=== PATIENT | male | born 1985 | race Caucasian/White ===

== ENCOUNTER 2017-08-03 05:53 | Emergency (ER) | payer SELFPAY ==
[~2017-08-03] VITALS: Ht 182.9 cm; Wt 68.0 kg
[2017-08-03 05:57] VITALS: BP 147/88; PULSE 100; RESP 16; TEMP 98.6; O2SAT 98
[2017-08-03 06:09] VITALS: BP 126/75; PULSE 91; RESP 16; O2SAT 98
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
== END 2017-08-03 06:16 | disposition left against medical advice (07) ==
LOC: NEPD 05:53
DX: Z00.00 Encounter for general adult medical examination without abnormal findings (principal); Z59.0 Homelessness; Z72.0 Tobacco use
CPT/HCPCS: 99281

== ENCOUNTER 2017-09-21 13:35 | Inpatient (IN) | payer SELFPAY ==
[~2017-09-21] VITALS: Ht 182.9 cm; Wt 69.2 kg
[2017-09-21] MEDS ORDERED: SODIUM CHLORIDE 0.9% FLUSH 10 ML FLUSH IVF PRN (14:00)
--- NOTE | 2017-09-21 14:03 | PD ---
HPI Chief Complaint: OD/ Ingestion Time Seen by Provider: 13:55 Travel History International Travel<30 days: No Contact w/Intl Traveler<30days: No Traveled to known affect area: No History of Present Illness HPI 32-year-old male with history of opiate abuse, presents to the ER today brought in by EMS because he had used methadone and heroin, and had overdosed, was unresponsive and girlfriend called the ambulance. He was given 0.8 Narcan and became arousable but is lethargic by the time he gets to the ER. He prefers does not admit to taking anything. However, girlfriend had told ambulance crew when he took. He denies any other issues. Modifying Factors: None Associated Signs & Symptoms: Opiate overdose Risk Factors: Opiate abuse PFSH Past Medical History Immunizations Current: No Social History Alcohol Use: No Tobacco Use: Yes Substance Use: No Allergies-Medications (Allergen,Severity, Reaction): Coded Allergies: No Known Allergies (Verified Allergy, Unknown, 08/03/17) Reported Meds & Prescriptions Reported Meds & Active Scripts Active No Active Prescriptions or Reported Medications Review of Systems ROS Limitations: Intoxication, Altered Mental Status Physical Exam Narrative GENERAL: Well-developed young white male patient currently in moderate distress. Lethargic. SKIN: Focused skin assessment warm/dry. HEAD: Atraumatic. Normocephalic. EYES: Pupils small, equal and round. No scleral icterus. No injection or drainage. ENT: No nasal bleeding or discharge. Mucous membranes pink and moist. NECK: Trachea midline. No JVD. CARDIOVASCULAR: Regular rate and rhythm. No murmur appreciated. RESPIRATORY: No accessory muscle use. Clear to auscultation. Breath sounds equal bilaterally. GASTROINTESTINAL: Abdomen soft, non-tender, nondistended. Hepatic and splenic margins not palpable. MUSCULOSKELETAL: No obvious deformities. No clubbing. No cyanosis. No edema. NEUROLOGICAL: Lethargic. No obvious cranial nerve deficits. Motor grossly within normal limits. Normal speech. PSYCHIATRIC: Appropriate mood and affect; insight and judgment normal. Data Data Last Documented VS Vital Signs Date Time Temp Pulse Resp B/P (MAP) Pulse Ox O2 Delivery O2 Flow Rate FiO2 09/21/17 15:20 12 98 Nasal Cannula 2.00 09/21/17 15:06 69 09/21/17 14:10 98.7 Orders Orders Complete Blood Count With Diff (09/21/17 13:55) Comprehensive Metabolic Panel (09/21/17 13:55) Iv Access Insert/Monitor (09/21/17 13:55) Ecg Monitoring (09/21/17 13:55) Oximetry (09/21/17 13:55) Sodium Chloride 0.9% Flush (Ns Flush) (09/21/17 14:00) Drug Screen, Random Urine (09/21/17 13:55) Alcohol (Ethanol) (09/21/17 13:55) Salicylates (Aspirin) (09/21/17 13:55) Tylenol (Acetaminophen) (09/21/17 13:55) Naloxone Inj (Narcan Inj) (09/21/17 14:00) Restraints Non-Violent MATT.Q3H (09/21/17 13:57) Lorazepam Inj (Ativan Inj) (09/21/17 14:30) Lorazepam Inj (Ativan Inj) (09/21/17 14:21) Restraints Violent (09/21/17 14:43) Admit Order (Ed Use Only) (09/21/17 16:27) Labs Laboratory Tests Test 09/21/17 14:20 09/21/17 15:00 White Blood Count 4.6 TH/MM3 Red Blood Count 4.60 MIL/MM3 Hemoglobin 14.4 GM/DL Hematocrit 41.6 % Mean Corpuscular Volume 90.5 FL Mean Corpuscular Hemoglobin 31.3 PG Mean Corpuscular Hemoglobin Concent 34.6 % Red Cell Distribution Width 12.6 % Platelet Count 177 TH/MM3 Mean Platelet Volume 8.7 FL Neutrophils (%) (Auto) 58.0 % Lymphocytes (%) (Auto) 23.9 % Monocytes (%) (Auto) 17.4 % Eosinophils (%) (Auto) 0.3 % Basophils (%) (Auto) 0.4 % Neutrophils # (Auto) 2.6 TH/MM3 Lymphocytes # (Auto) 1.1 TH/MM3 Monocytes # (Auto) 0.8 TH/MM3 Eosinophils # (Auto) 0.0 TH/MM3 Basophils # (Auto) 0.0 TH/MM3 CBC Comment DIFF FINAL Differential Comment Blood Urea Nitrogen 17 MG/DL Creatinine 1.06 MG/DL Random Glucose 113 MG/DL Total Protein 7.2 GM/DL Albumin 3.6 GM/DL Calcium Level 8.7 MG/DL Alkaline Phosphatase 50 U/L Aspartate Amino Transf (AST/SGOT) 89 U/L Alanine Aminotransferase (ALT/SGPT) 66 U/L Total Bilirubin 0.8 MG/DL Sodium Level 139 MEQ/L Potassium Level 4.5 MEQ/L Chloride Level 106 MEQ/L Carbon Dioxide Level 23.4 MEQ/L Anion Gap 10 MEQ/L Estimat Glomerular Filtration Rate 80 ML/MIN Salicylates Level LESS THAN 1.7 MG/DL Acetaminophen Level LESS THAN 2.0 MCG/ML Ethyl Alcohol Level LESS THAN 3 MG/DL Urine Opiates Screen NEG Urine Barbiturates Screen NEG Urine Amphetamines Screen POS Urine Benzodiazepines Screen NEG Urine Cocaine Screen POS Urine Cannabinoids Screen POS MDM Medical Decision Making Medical Screen Exam Complete: Yes Emergency Medical Condition: Yes Medical Record Reviewed: Yes Interpretation(s) Laboratory Tests Test 09/21/17 14:20 09/21/17 15:00 Monocytes (%) (Auto) 17.4 % (0.0-8.0) Random Glucose 113 MG/DL (74-106) Aspartate Amino Transf (AST/SGOT) 89 U/L (15-37) Estimat Glomerular Filtration Rate 80 ML/MIN (>89) Salicylates Level LESS THAN 1.7 MG/DL Acetaminophen Level LESS THAN 2.0 MCG/ML Urine Amphetamines Screen POS (NEG) Urine Cocaine Screen POS (NEG) Urine Cannabinoids Screen POS (NEG) Differential Diagnosis Opiate overdose/rule out coingestions versus metabolic issues Narrative Course Patient was initially lethargic, and as we were getting further workup done and about to give him more Narcan, he awakens fairly agitated, disoriented, and was given Ativan for severe agitation, in order to keep him from hurting self and others. Marchman acte was instituted due to his obvious intoxication. At this point, my plan would be to admit the patient for further treatment. Patient will need to go to ICU due to lethargy and suspected opiate overdose. Case was discussed with Dr. Kaye for admission. Aggregate critical care time was 15 minutes. Time to perform other separately billable procedures was not included in the critical care time. My time did not include minutes spent treating any other patients simultaneously or on activities that did not directly contribute to the patient's treatment. The services I provided to this patient were to treat and/or prevent clinically significant deterioration that could result in: Respiratory arrest, I provided critical care services requiring my management, as noted below: Chart data review, documentation time, medication orders and management, vital sign assessments/reviewing monitor data, ordering and reviewing lab tests, ordering and interpreting/reviewing x-rays and diagnostic studies, care of the patient and discussion of the patient with the admitting physicians. Diagnosis Primary Impression: Substance abuse Additional Impression: Opiate overdose Admitting Information Admitting Physician Requests: Admit Scripts No Active Prescriptions or Reported Meds Mario Payne MD Sep 21, 2017 14:03
[2017-09-21] MEDS: NALOXONE HCL 2 MG/2 ML VIAL IV PUSH ONE ×2 (14:06→17:48)
[2017-09-21 14:10] VITALS: BP 105/61; PULSE 91; RESP 24; TEMP 98.7; O2SAT 98
[2017-09-21] MEDS ORDERED: LORazepam 2 MG/ML VIAL ONE (14:21)
[2017-09-21] MEDS ORDERED: LORazepam 2 MG/ML VIAL IV PUSH ONE (14:30)
[2017-09-21 15:06] VITALS: BP 145/96; PULSE 69; RESP 16; O2SAT 96
[2017-09-21 15:20] VITALS: RESP 12; O2SAT 98
[2017-09-21 15:44] LABS: AUTOMATED NEUTROPHIL # 2.6 TH/MM3 (1.8-7.7); BASOPHIL % 0.4 % (0.0-2.0); EOSINOPHIL % 0.3 % (0.0-4.0); HEMATOCRIT 41.6 % (39.0-51.0); HEMOGLOBIN 14.4 GM/DL (13.0-17.0); LYMPH % 23.9 % (9.0-44.0); LYMPHOCYTE # 1.1 TH/MM3 (1.0-4.8); MEAN CELL VOLUME 90.5 FL (80.0-100.0); MEAN CORPUSCULAR HEMOGLOBIN 31.3 PG (27.0-34.0); MEAN CORPUSCULAR HGB CONC 34.6 % (32.0-36.0); MEAN PLATELET VOLUME 8.7 FL (7.0-11.0); MONO % 17.4 % (0.0-8.0); MONOCYTE # 0.8 TH/MM3 (0-0.9); PLATELET COUNT 177 TH/MM3 (150-450); RED CELL DISTRIBUTION WIDTH 12.6 % (11.6-17.2); WHITE BLOOD COUNT 4.6 TH/MM3 (4.0-11.0)
[2017-09-21 15:48] LABS: ALBUMIN 3.6 GM/DL (3.4-5.0); ALT (GPT) 66 U/L (12-78); AST (GOT) 89 U/L (15-37); BICARBONATE 23.4 MEQ/L (21.0-32.0); BLOOD UREA NITROGEN 17 MG/DL (7-18); CALCIUM 8.7 MG/DL (8.5-10.1); CHLORIDE 106 MEQ/L (98-107); CREATININE 1.06 MG/DL (0.60-1.30); GLOMERULAR FILTRATION RATE 80 ML/MIN (>89); GLUCOSE,RANDOM 113 MG/DL (74-106); SODIUM (NA) 139 MEQ/L (136-145)
[2017-09-21 15:50] LABS: ACETAMINOPHEN LESS THAN 2.0 MCG/ML (10.0-30.0); ALKALINE PHOSPHATASE 50 U/L (45-117); TOTAL BILIRUBIN ADULT 0.8 MG/DL (0.2-1.0); TOTAL PROTEIN 7.2 GM/DL (6.4-8.2)
[2017-09-21] MEDS ORDERED: LACTULOSE SYRUP 20 GM/30 ML CUP PO PRN (16:30)
[2017-09-21] MEDS ORDERED: BISACODYL 10 MG SUPP RECTAL PRN (16:30)
[2017-09-21] MEDS ORDERED: SENNOSIDES 8.6 MG TAB PO PRN (16:30)
[2017-09-21] MEDS ORDERED: MAGNESIUM HYDROXIDE SUSP 30 ML CUP PO PRN (16:30)
[2017-09-21] MEDS ORDERED: ONDANSETRON HCL 4 MG/2 ML VIAL IVP PRN (16:30)
[2017-09-21] MEDS ORDERED: SODIUM CHLORIDE 0.9% FLUSH 10 ML FLUSH IV FLUSH PRN (16:30)
[2017-09-21] MEDS ORDERED: NALOXONE HCL 0.4 MG/ML AMP IV PUSH PRN ×2 (16:30→18:15)
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
[2017-09-21 17:11] VITALS: BP 168/93; PULSE 48; RESP 12; O2SAT 100
[2017-09-21] MEDS ORDERED: ATROPINE SULFATE 1 MG/ML VIAL IV PUSH PRN (18:00)
[2017-09-21] MEDS: SODIUM CHLOR 0.9% 1000 ML INJ 1,000 ML IV SCH (18:22)
[2017-09-21] MEDS ORDERED: ENOXAPARIN SODIUM 40 MG/0.4 ML SYRINGE SQ SCH (18:30)
[2017-09-21 20:00] VITALS: BP 100/58; PULSE 64; RESP 18; TEMP 98.5; O2SAT 97
--- NOTE | 2017-09-21 21:14 | EKG ---
Date Performed: 09/21/2017 Time Performed: 15:00:27 PTAGE: 32 years EKG: Sinus rhythm INCOMPLETE RIGHT BUNDLE BRANCH BLOCK BORDERLINE ECG NO PREVIOUS TRACING DOCTOR: Zoltan Valladares Interpretating Date/Time 09/21/2017 21:12:33
[2017-09-21] MEDS: SODIUM CHLORIDE 0.9% FLUSH 10 ML FLUSH IV FLUSH SCH (21:31)
[2017-09-21] MEDS: DOCUSATE SODIUM 50 MG/SENNA 8.6 MG TAB PO SCH (21:31)
[2017-09-21 22:00] VITALS: PULSE 55
--- NOTE | 2017-09-21 22:02 | EKG ---
Date Performed: 09/21/2017 Time Performed: 17:15:44 PTAGE: 32 years EKG: SINUS BRADYCARDIA WITH OCCASIONAL SUPRAVENTRICULAR PREMATURE COMPLEXES BORDERLINE RIGHT AXI S DEVIATION INCOMPLETE RIGHT BUNDLE BRANCH BLOCK ABNORMAL ECG PREVIOUS TRACING : 09/21/2017 15.00 Compared to previous tracing, heart rate has decreased. DOCTOR: Zoltan Valladares Interpretating Date/Time 09/21/2017 22:00:47
--- NOTE | 2017-09-21 23:14 | PD.CONS ---
HPI Service Critical Care Medicine Consult Requested By Primary Care Physician Unknown History of Present Illness 32-year-old male with history of opiate abuse, presents today because he has had used methadone and heroin, and had possible overdosed, was unresponsive and girlfriend called the ambulance. He was given 0.8 Narcan and became abusable but was still very lethargic by the time he arrived to the emergency department. Patient's girlfriend had told ambulance crew she was concerned of him taking Flakka. Upon arrival to ICU the patient has been sleepy and comfortable however later at night he became extremely combative, talking about his child's that recently at the age of 3 made him very upset and using drugs is his way of grieving. Review of Systems ROS Unobtainable due to altered mental status Past Family Social History Allergies: Coded Allergies: No Known Allergies (Verified , 08/03/17) Past Medical History No significant past medical history Past Surgical History No significant surgical history Reported Medications Reported Meds & Active Scripts Active No Active Prescriptions or Reported Medications Active Ordered Medications Current Medications Medications (Trade) Dose Ordered Sig/Mary Route PRN Reason Start Time Stop Time Status Last Admin Dose Admin Sodium Chloride 1,000 ml @ 75 mls/hr [id number] IV 09/21/17 16:27 09/21/17 18:22 Sodium Chloride (NS Flush) 2 ml UNSCH PRN IV FLUSH FLUSH AFTER USING IV ACCESS 09/21/17 16:30 Sodium Chloride (NS Flush) 2 ml BID IV FLUSH 09/21/17 21:00 09/21/17 21:31 Ondansetron HCl (Zofran Inj) 4 mg Q6H PRN IVP NAUSEA OR VOMITING 09/21/17 16:30 Naloxone HCl (Narcan Inj) 0.4 mg UNSCH PRN IV PUSH SEE LABEL COMMENTS 09/21/17 16:30 Senna/Docusate Sodium (Destiny-Colace) 1 tab BID PO 09/21/17 21:00 09/21/17 21:31 Magnesium Hydroxide (Milk Of Magnesia Liq) 30 ml Q12H PRN PO Mild constipation 09/21/17 16:30 Sennosides (Senokot) 17.2 mg Q12H PRN PO Moderate constipation 09/21/17 16:30 Bisacodyl (Dulcolax Supp) 10 mg DAILY PRN RECTAL SEVERE CONSITIPATION 09/21/17 16:30 Lactulose (Lactulose Liq) 30 ml DAILY PRN PO SEVERE CONSITIPATION 09/21/17 16:30 Atropine Sulfate (Atropine Inj) 0.5 mg Q5M PRN IV PUSH SYMPTOMATIC BRADYCARDIA 09/21/17 18:00 Enoxaparin Sodium (Lovenox Inj) 40 mg Q24H SQ 09/21/17 18:30 09/21/17 18:30 Naloxone HCl (Narcan Inj) 0.4 mg Q2M PRN IV PUSH RESP DEPRESSION OR HYPOTENSION 09/21/17 18:15 Family History Not able to obtain Social History Per records tobacco use 1 PPD , no EtOH use. Now with positive urine for cocaine , amphetamines and cannabis Physical Exam Vital Signs Vital Signs Date Time Temp Pulse Resp B/P (MAP) Pulse Ox O2 Delivery O2 Flow Rate FiO2 09/21/17 20:00 64 09/21/17 18:51 09/21/17 17:11 48 12 168/93 (118) 100 Nasal Cannula 2.00 09/21/17 15:20 12 98 Nasal Cannula 2.00 09/21/17 15:06 69 16 145/96 (112) 96 Room Air 09/21/17 14:31 (76) Room Air 09/21/17 14:10 98.7 91 24 105/61 (76) 98 Room Air 09/21/17 13:54 66 18 Physical Exam GENERAL: Well-nourished, well-developed patient. Episodes of extreme agitation , and lethargy SKIN: Warm and dry. HEAD: Normocephalic. EYES: No scleral icterus. No injection or drainage. NECK: Supple, trachea midline. No JVD or lymphadenopathy. CARDIOVASCULAR: Regular rate and rhythm without murmurs, gallops, or rubs. RESPIRATORY: Breath sounds equal bilaterally. No accessory muscle use. GASTROINTESTINAL: Abdomen soft, non-tender, nondistended. MUSCULOSKELETAL: No cyanosis, or edema. BACK: Nontender without obvious deformity. NEURO EXAM: Mental Status: The patient is alert and oriented to person Cranial Nerves: Pupils are round, reactive to light. Reflexes: No clonus. Laboratory Laboratory Tests Test 09/21/17 14:20 09/21/17 15:00 White Blood Count 4.6 Red Blood Count 4.60 Hemoglobin 14.4 Hematocrit 41.6 Mean Corpuscular Volume 90.5 Mean Corpuscular Hemoglobin 31.3 Mean Corpuscular Hemoglobin Concent 34.6 Red Cell Distribution Width 12.6 Platelet Count 177 Mean Platelet Volume 8.7 Neutrophils (%) (Auto) 58.0 Lymphocytes (%) (Auto) 23.9 Monocytes (%) (Auto) 17.4 Eosinophils (%) (Auto) 0.3 Basophils (%) (Auto) 0.4 Neutrophils # (Auto) 2.6 Lymphocytes # (Auto) 1.1 Monocytes # (Auto) 0.8 Eosinophils # (Auto) 0.0 Basophils # (Auto) 0.0 CBC Comment DIFF FINAL Differential Comment Blood Urea Nitrogen 17 Creatinine 1.06 Random Glucose 113 Total Protein 7.2 Albumin 3.6 Calcium Level 8.7 Alkaline Phosphatase 50 Aspartate Amino Transf (AST/SGOT) 89 Alanine Aminotransferase (ALT/SGPT) 66 Total Bilirubin 0.8 Sodium Level 139 Potassium Level 4.5 Chloride Level 106 Carbon Dioxide Level 23.4 Anion Gap 10 Estimat Glomerular Filtration Rate 80 Salicylates Level LESS THAN 1.7 Acetaminophen Level LESS THAN 2.0 Ethyl Alcohol Level LESS THAN 3 Urine Opiates Screen NEG Urine Barbiturates Screen NEG Urine Amphetamines Screen POS Urine Benzodiazepines Screen NEG Urine Cocaine Screen POS Urine Cannabinoids Screen POS Result Diagram: 09/21/17 1420 09/21/17 142 Assessment and Plan Assessment and Plan Altered mental status - Post substance intoxication - Ativan and Haldol when necessary for agitation - Monitor neuro checks in the ICU per routine - CT head negative Polysubstance abuse - Benzos when necessary - Monitor for withdrawal DVT GI prophylaxis - Teds SCDs - Pepcid - Early aggressive mobilization Critical Care: The total critical care time was 35 minutes. Time to perform other separately billable procedures was not included in the critical care time. Herb Emmanuel MD Sep 21, 2017 23:14
[2017-09-22] VITALS (10 sets, daily range): BP systolic 114–145; BP diastolic 73–85; PULSE 47–72; RESP 9–18; TEMP 98.2–98.7; O2SAT 97–99
[2017-09-22] MEDS ORDERED: LORazepam 2 MG/ML VIAL ONE (00:04)
[2017-09-22] MEDS ORDERED: diphenhydrAMINE HCL 50 MG/ML VIAL ONE (00:04)
[2017-09-22] MEDS ORDERED: HALOPERIDOL LACTATE 5 MG/ML AMP IV ONE (00:15)
[2017-09-22] MEDS: SODIUM CHLOR 0.9% 1000 ML INJ 1,000 ML IV SCH (05:26)
[2017-09-22] MEDS ORDERED: HALOPERIDOL LACTATE 5 MG/ML AMP IV PRN (08:30)
[2017-09-22] MEDS: SODIUM CHLORIDE 0.9% FLUSH 10 ML FLUSH IV FLUSH SCH (09:00)
[2017-09-22] MEDS: DOCUSATE SODIUM 50 MG/SENNA 8.6 MG TAB PO SCH (09:00)
--- NOTE | 2017-09-22 11:56 | PD.PSY.CON ---
Provisional Diagnosis Admission Date Sep 21, 2017 at 16:29 Brady I. Polysubstance dependence, including amphetamines, cocaine and cannabis. Brady II. 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 Noyola Reason for Consult Polysubstance dependence Primary Care Physician Unknown HPI The patient is a 32-year-old man with history of opiate abuse, polysubstance dependence including cannabis, amphetamines, cocaine, who presents to the ER today brought in by EMS because he had used methadone and heroin, and had overdosed, was unresponsive and girlfriend called the ambulance. He was given 0.8 Narcan and became abusable but is lethargic by the time he gets to the ER. He prefers does not admit to taking anything. However , girlfriend had told ambulance crew when he took. He was consulted to psychiatry to assess then she'll intentional overdose. However, on psychiatric evaluation the patient repeatedly denies that he tried to overdose with the intention to commit suicide. She reports that he has been using cocaine, cannabis and amphetamines on and off, but he is addicted to opiates. Patient denies depressive symptoms, he denies anhedonia, he denies hopelessness, helplessness, worthlessness, he denies suicidal and homicidal ideation. During the evaluation the patient is irritable, poorly cooperative, answering my questions very briefly. Patient denies visual and auditory hallucinations, no paranoia, no delusions of reference, no agitation or aggressive behavior noted. The patient is fully oriented 3. Review of Systems Constitutional: DENIES: Diaphoretic episodes, Fatigue, Fever, Weight gain, Weight loss, Chills, Dizziness, Change in appetite, Night Sweats Endocrine: DENIES: Heat/cold intolerance, Polydipsia, Polyuria, Polyphagia Eyes: DENIES: Blurred vision, Diplopia, Eye inflammation, Eye pain, Vision loss , Photosensitivity, Double Vision Ears, nose, mouth, throat: DENIES: Tinnitus, Hearing loss, Vertigo, Nasal discharge, Oral lesions, Throat pain, Hoarseness, Ear Pain, Running Nose, Epistaxis, Sinus Pain, Toothache, Odynophagia Respiratory: DENIES: Apneas, Cough, Snoring, Wheezing, Hemoptysis, Sputum production, Shortness of breath Cardiovascular: DENIES: Chest pain, Palpitations, Syncope, Dyspnea on Exertion , PND, Lower Extremity Edema, Orthopnea, Claudication Gastrointestinal: DENIES: Abdominal pain, Black stools, Bloody stools, Constipation, Diarrhea, Nausea, Vomiting, Difficulty Swallowing, Anorexia Genitourinary: DENIES: Sexual dysfunction, Urinary frequency, Urinary incontinence, Urgency, Hematuria, Dysuria, Nocturia, Penile Discharge, Testicular Pain, Testicular Swelling Musculoskeletal: DENIES: Joint pain, Muscle aches, Stiffness, Joint Swelling, Back pain, Neck pain Integumentary: DENIES: Abnormal pigmentation, Nail changes, Pruritus, Rash Hematologic/lymphatic: DENIES: Bruising, Lymphadenopathy Immunologic/allergic: DENIES: Eczema, Urticaria Neurologic: DENIES: Abnormal gait, Headache, Localized weakness, Paresthesias, Seizures, Speech Problems, Tremor, Poor Balance Psychiatric: DENIES: Anxiety, Confusion, Mood changes, Depression, Hallucinations, Agitation, Suicidal Ideation, Homicidal Ideation, Delusions Past Family Social History Coded Allergies: No Known Allergies (Verified , 08/03/17) No Active Prescriptions or Reported Meds Current Medications Medications (Trade) Dose Ordered Sig/Mary Route Start Time Stop Time Status Last Admin Sodium Chloride 1,000 ml @ 75 mls/hr [id number] IV 09/21/17 16:27 09/22/17 05:26 (NS Flush) 2 ml UNSCH PRN IV FLUSH 09/21/17 16:30 (NS Flush) 2 ml BID IV FLUSH 09/21/17 21:00 09/21/17 21:31 (Zofran Inj) 4 mg Q6H PRN IVP 09/21/17 16:30 (Destiny-Colace) 1 tab BID PO 09/21/17 21:00 09/21/17 21:31 (Milk Of Magnesia Liq) 30 ml Q12H PRN PO 09/21/17 16:30 (Senokot) 17.2 mg Q12H PRN PO 09/21/17 16:30 (Dulcolax Supp) 10 mg DAILY PRN RECTAL 09/21/17 16:30 (Lactulose Liq) 30 ml DAILY PRN PO 09/21/17 16:30 (Atropine Inj) 0.5 mg Q5M PRN IV PUSH 09/21/17 18:00 (Lovenox Inj) 40 mg Q24H SQ 09/21/17 18:30 09/21/17 18:30 (Narcan Inj) 0.4 mg Q2M PRN IV PUSH 09/21/17 18:15 (Haldol Inj) 5 mg Q4H PRN IV 09/22/17 08:30 Family Psych History Patient denies family psychiatric history Social History Patient lives in [place], he is stays that he works, has a girlfriend, Patient's Strengths (min. 2) Verbal communication Physical Exam Vital Signs Vital Signs Date Time Temp Pulse Resp B/P (MAP) Pulse Ox O2 Delivery O2 Flow Rate FiO2 09/22/17 10:00 53 09/22/17 08:00 98.2 9 09/22/17 04:00 145/85 (105) 99 09/21/17 17:11 Nasal Cannula 2.00 I/O 09/22/17 09/22/17 09/23/17 08:00 16:00 00:00 Intake Total 240 ml Output Total 400 ml Balance -160 ml Lab Results Test 09/21/17 14:20 09/21/17 15:00 White Blood Count 4.6 TH/MM3 Red Blood Count 4.60 MIL/MM3 Hemoglobin 14.4 GM/DL Hematocrit 41.6 % Mean Corpuscular Volume 90.5 FL Mean Corpuscular Hemoglobin 31.3 PG Mean Corpuscular Hemoglobin Concent 34.6 % Red Cell Distribution Width 12.6 % Platelet Count 177 TH/MM3 Mean Platelet Volume 8.7 FL Neutrophils (%) (Auto) 58.0 % Lymphocytes (%) (Auto) 23.9 % Monocytes (%) (Auto) 17.4 % Eosinophils (%) (Auto) 0.3 % Basophils (%) (Auto) 0.4 % Neutrophils # (Auto) 2.6 TH/MM3 Lymphocytes # (Auto) 1.1 TH/MM3 Monocytes # (Auto) 0.8 TH/MM3 Eosinophils # (Auto) 0.0 TH/MM3 Basophils # (Auto) 0.0 TH/MM3 CBC Comment DIFF FINAL Differential Comment Blood Urea Nitrogen 17 MG/DL Creatinine 1.06 MG/DL Random Glucose 113 MG/DL Total Protein 7.2 GM/DL Albumin 3.6 GM/DL Calcium Level 8.7 MG/DL Alkaline Phosphatase 50 U/L Aspartate Amino Transf (AST/SGOT) 89 U/L Alanine Aminotransferase (ALT/SGPT) 66 U/L Total Bilirubin 0.8 MG/DL Sodium Level 139 MEQ/L Potassium Level 4.5 MEQ/L Chloride Level 106 MEQ/L Carbon Dioxide Level 23.4 MEQ/L Anion Gap 10 MEQ/L Estimat Glomerular Filtration Rate 80 ML/MIN Salicylates Level LESS THAN 1.7 MG/DL Acetaminophen Level LESS THAN 2.0 MCG/ML Ethyl Alcohol Level LESS THAN 3 MG/DL Urine Opiates Screen NEG Urine Barbiturates Screen NEG Urine Amphetamines Screen POS Urine Benzodiazepines Screen NEG Urine Cocaine Screen POS Urine Cannabinoids Screen POS Mental Status Examination Appearance: Appropriate Consciousness: Alert Orientation: x4 Motor Activity: Normal gait Speech: Unremarkable Language: Adequate Fund of Knowledge: Adequate Attention and Concentration: Adequate Memory: Unremarkable Mood: Irritable Affect: Irritable Thought Process & Associations: Intact Thought Content: Appropriate Hallucination Type: None Delusion Type: None Suicidal Ideation: No Suicidal Plan: No Suicidal Intention: No Homicidal Ideation: No Homicidal Plan: No Homicidal Intention: No Insight: Adequate Judgment: Adequate Assessment & Plan Problem List: (1) Polysubstance (excluding opioids) dependence ICD Codes: F19.20 - Other psychoactive substance dependence, uncomplicated Assessment & Plan: At the moment of the psychiatric evaluation the patient does not present any significant symptomatology of depression, anxiety, araceli or psychosis. Patient denies suicidal and homicidal ideation, patient also denies visual and auditory hallucinations. His recent overdose with opiates doesn't seem to be with delivered overdose, but poor judgment and poor impulse control related with chronic drug use and intoxication. At this moment the patient does not meet criteria for psychiatric admission. Patient would benefit of comprehensive rehabilitation program. Support, motivation and psychoeducation provided. Xiong act will be lifted. Assessment & Plan Estimated LOS: Britton Diehl MD Sep 22, 2017 11:56
--- NOTE | 2017-09-22 16:30 | HHI.CCPN ---
Subjective Remarks/Hospital Course Hospital Course: 32-year-old male with history of opiate abuse, presents today because he has had used methadone and heroin, and had possible overdosed, was unresponsive and girlfriend called the ambulance. He was given 0.8 Narcan and became abusable but was still very lethargic by the time he arrived to the emergency department. Patient's girlfriend had told ambulance crew she was concerned of him taking Flakka. Upon arrival to ICU the patient has been sleepy and comfortable however later at night he became extremely combative, talking about his child's that recently at the age of 3 made him very upset and using drugs is his way of grieving. Subjective: 09/22: patient doing well. on room air. tolerating diet. voiding on own. psych saw patient and cleared him from a psychiatric standpoint and he does not need inpatient psych. I talked with him and he denies suicidal ideations or homicidal ideations. he was marchman acted for aggressive behavior but exhibits none of that behavior today. I asked him about inpatient rehab and he vehemently states he does not need or want detox or inpatient opiate rehabilitation. Objective Vital Signs Date Time Temp Pulse Resp B/P (MAP) Pulse Ox O2 Delivery O2 Flow Rate FiO2 09/22/17 16:00 55 09/22/17 16:00 98.4 11 09/22/17 04:00 145/85 (105) 99 09/21/17 17:11 Nasal Cannula 2.00 Intake and Output 09/22/17 09/22/17 09/23/17 08:00 16:00 00:00 Intake Total 240 ml Output Total 400 ml Balance -160 ml Result Diagram: 09/21/17 1420 09/21/17 1420 Objective Remarks GENERAL: Well-nourished, well-developed patient. calm. no acute distress. SKIN: Warm and dry. HEAD: Normocephalic. EYES: No scleral icterus. No injection or drainage. NECK: Supple, trachea midline. CARDIOVASCULAR: Regular rate and rhythm without murmurs, gallops, or rubs. RESPIRATORY: Breath sounds equal bilaterally. No accessory muscle use. GASTROINTESTINAL: Abdomen soft, non-tender, nondistended. MUSCULOSKELETAL: No cyanosis, or edema. NEURO EXAM: RASS 0. calm. not agitated. poor judgement and insight. no focal deficits. A/P Assessment and Plan Assessment: 32yM s/p opiate overdose, initially marchmed acted. Both psychiatry and myself agree that he is currently not a harm to himself or others. he is sober and calm. I do agree that he would benefit from inpatient detox/rehab facility, but I do not think that he requires mandatory marchman act/ involuntary hold. If he is not ready to detox, then I do not think inpatient rehab services will afford him much benefit. From a medical stand point, he is cleared for medical discharge and I cannot hold him inpatient. He wishes to go home. Toxic Encephalopathy - resolved. - Post substance intoxication - CT head negative Polysubstance abuse - recommended inpatient rehab. recommended cessation of opiate use. patient refused and does not wish to cessate at this time. - Monitor for withdrawal DVT GI prophylaxis - Teds SCDs - Pepcid - Early aggressive mobilization Dispo: home with friend. Serjio Melton MD Sep 22, 2017 16:30
--- NOTE | 2017-09-22 16:31 | HHI.DS ---
Discharge Summary Admission Date Sep 21, 2017 at 16:29 Discharge Date: Sep 22, 2017 Admitting Diagnosis polysubstance abuse/suspected opiate overdose/altered mental status Brief History 32-year-old male with history of opiate abuse, presents to the ER today brought in by EMS because he had used methadone and heroin, and had overdosed, was unresponsive and girlfriend called the ambulance. He was given 0.8 Narcan and became abusable but is lethargic by the time he gets to the ER. He prefers does not admit to taking anything. However, girlfriend had told ambulance crew when he took. He denies any other issues. Discussed with ED physician. Patient received narcan by EMS, still lethargic in the ED however he was noted agitated and combative in the ED, and received ativan . Patient is in bed and sleepy not able to give any history. He is also noted with HR in 50s. CBC/BMP: 09/21/17 1420 09/21/17 1420 Significant Findings Laboratory Tests Test 09/21/17 14:20 09/21/17 15:00 09/22/17 11:00 Monocytes (%) (Auto) 17.4 % (0.0-8.0) Random Glucose 113 MG/DL (74-106) Aspartate Amino Transf (AST/SGOT) 89 U/L (15-37) Estimat Glomerular Filtration Rate 80 ML/MIN (>89) Salicylates Level LESS THAN 1.7 MG/DL Acetaminophen Level LESS THAN 2.0 MCG/ML Urine Amphetamines Screen POS (NEG) Urine Cocaine Screen POS (NEG) Urine Cannabinoids Screen POS (NEG) Hospital Course Hospital Course: 32-year-old male with history of opiate abuse, presents today because he has had used methadone and heroin, and had possible overdosed, was unresponsive and girlfriend called the ambulance. He was given 0.8 Narcan and became abusable but was still very lethargic by the time he arrived to the emergency department. Patient's girlfriend had told ambulance crew she was concerned of him taking Flakka. Upon arrival to ICU the patient has been sleepy and comfortable however later at night he became extremely combative, talking about his child's that recently at the age of 3 made him very upset and using drugs is his way of grieving. Subjective: 09/22: patient doing well. on room air. tolerating diet. voiding on own. psych saw patient and cleared him from a psychiatric standpoint and he does not need inpatient psych. I talked with him and he denies suicidal ideations or homicidal ideations. he was marchman acted for aggressive behavior but exhibits none of that behavior today. I asked him about inpatient rehab and he vehemently states he does not need or want detox or inpatient opiate rehabilitation. Pt Condition on Discharge: Stable Discharge Disposition: Discharge Home Discharge Instructions DIET: Follow Instructions for: As Tolerated, No Restrictions Activities you can perform: Regular-No Restrictions Serjio Melton MD Sep 22, 2017 16:31
[2017-09-22 17:43] LABS: AUTOMATED NEUTROPHIL # 2.3 TH/MM3 (1.8-7.7); BASOPHIL % 0.4 % (0.0-2.0); EOSINOPHIL # 0.1 TH/MM3 (0-0.4); EOSINOPHIL % 1.2 % (0.0-4.0); HEMOGLOBIN 14.3 GM/DL (13.0-17.0); LYMPH % 30.9 % (9.0-44.0); LYMPHOCYTE # 1.3 TH/MM3 (1.0-4.8); MEAN CELL VOLUME 90.5 FL (80.0-100.0); MEAN CORPUSCULAR HEMOGLOBIN 31.5 PG (27.0-34.0); MEAN CORPUSCULAR HGB CONC 34.8 % (32.0-36.0); MEAN PLATELET VOLUME 8.8 FL (7.0-11.0); MONO % 11.2 % (0.0-8.0); MONOCYTE # 0.5 TH/MM3 (0-0.9); NEUT % 56.3 % (16.0-70.0); PLATELET COUNT 145 TH/MM3 (150-450); RED BLOOD COUNT 4.53 MIL/MM3 (4.50-5.90); WHITE BLOOD COUNT 4.1 TH/MM3 (4.0-11.0)
[2017-09-22 17:59] LABS: BICARBONATE 28.6 MEQ/L (21.0-32.0); CALCIUM 7.8 MG/DL (8.5-10.1); CREATININE 0.98 MG/DL (0.60-1.30)
== END 2017-09-22 18:45 | DRG 917 ==
LOC: NEPC 13:35 → NEDA 16:29 → HIMN 18:43
PROVIDERS: ADMIT Internal Medicine Critical Care Medicine; ATTEND Internal Medicine Critical Care Medicine
DX: T40.3X1A Poisoning by methadone, accidental (unintentional), initial encounter (principal); G92 Toxic encephalopathy; T40.1X1A Poisoning by heroin, accidental (unintentional), initial encounter; F11.129 Opioid abuse with intoxication, unspecified; F19.129 Other psychoactive substance abuse with intoxication, unspecified; R53.83 Other fatigue; F17.210 Nicotine dependence, cigarettes, uncomplicated
CPT/HCPCS: 80048; 80053; 80307; 85025; 87641; 93005; J1200; J1630; J1650; J2060; J2310; J7030

== ENCOUNTER 2017-10-18 18:57 | Emergency (ER) | payer SELFPAY ==
[~2017-10-18] VITALS: Ht 182.9 cm; Wt 75.0 kg
[2017-10-18 19:22] VITALS: BP 118/67; PULSE 77; RESP 16; TEMP 97.7; O2SAT 100
[2017-10-18] MEDS ORDERED: SODIUM CHLOR 0.9% 1000 ML INJ 1,000 ML IV ONE ×2 (19:32→21:45)
[2017-10-18] MEDS ORDERED: NALOXONE HCL 0.4 MG/ML AMP IV PUSH ONE (19:45)
[2017-10-18] MEDS ORDERED: ONDANSETRON HCL 4 MG/2 ML VIAL IV PUSH ONE (19:45)
[2017-10-18] MEDS ORDERED: SODIUM CHLORIDE 0.9% FLUSH 10 ML FLUSH IVF PRN (19:45)
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
--- NOTE | 2017-10-18 20:26 | RADRPT ---
EXAM DATE/TIME: 10/18/2017 20:06 [facility] COMPARISON: No previous studies available for comparison. INDICATIONS : Right hand infection. Swelling. MEDICAL HISTORY : None. SURGICAL HISTORY : None. ENCOUNTER: Initial ACUITY: 1 day PAIN SCORE: Non-responsive. LOCATION: Right upper extremity FINDINGS: Dorsal predominant soft tissue swelling seen of the right hand. No radiopaque foreign body seen. Bone s are intact and normally aligned. No significant arthropathy demonstrated. CONCLUSION: Nonspecific soft tissue swelling. No acute bony abnormality. No radiopaque foreign body. Alex Hernandez MD on October 18, 2017 at 20:23 Board Certified Radiologist. This report was verified electronically.
[2017-10-18 20:49] LABS: AUTOMATED NEUTROPHIL # 4.4 TH/MM3 (1.8-7.7); BASOPHIL % 0.6 % (0.0-2.0); EOSINOPHIL % 0.5 % (0.0-4.0); HEMO FLAGS DIFF FINAL; LYMPH % 30.6 % (9.0-44.0); LYMPHOCYTE # 2.4 TH/MM3 (1.0-4.8); MEAN CELL VOLUME 89.4 FL (80.0-100.0); MEAN CORPUSCULAR HEMOGLOBIN 30.8 PG (27.0-34.0); MEAN CORPUSCULAR HGB CONC 34.5 % (32.0-36.0); NEUT % 57.3 % (16.0-70.0); PLATELET COUNT 265 TH/MM3 (150-450); RED BLOOD COUNT 4.58 MIL/MM3 (4.50-5.90); RED CELL DISTRIBUTION WIDTH 12.4 % (11.6-17.2); WHITE BLOOD COUNT 7.7 TH/MM3 (4.0-11.0)
[2017-10-18 20:59] LABS: ANION GAP 6 MEQ/L (5-15); AST (GOT) 63 U/L (15-37); BLOOD UREA NITROGEN 25 MG/DL (7-18); CHLORIDE 102 MEQ/L (98-107); GLOMERULAR FILTRATION RATE 72 ML/MIN (>89); POTASSIUM 3.7 MEQ/L (3.5-5.1); SODIUM (NA) 138 MEQ/L (136-145)
[2017-10-18 21:01] LABS: ALCOHOL LESS THAN 3 MG/DL (0-5)
[2017-10-18 21:03] LABS: ALKALINE PHOSPHATASE 51 U/L (45-117); ALT (GPT) 48 U/L (12-78); TOTAL BILIRUBIN ADULT 0.8 MG/DL (0.2-1.0)
[2017-10-18 21:06] LABS: ACETAMINOPHEN LESS THAN 2.0 MCG/ML (10.0-30.0)
--- NOTE | 2017-10-18 21:31 | RADRPT ---
EXAM DATE/TIME: 10/18/2017 20:44 [facility] COMPARISON: No previous studies available for comparison. INDICATIONS : Abscess. MEDICAL HISTORY : Substance abuse. Tobacco use. SURGICAL HISTORY : None. ENCOUNTER: Initial ACUITY: 1 day PAIN SCORE: Nonresponsive. LOCATION: Right hand. AREA EVALUATED: Right hand. FINDINGS: There is generalized soft tissue edema dorsum of the right hand, especially at the level of the metac arpophalangeal joints. Nothing organized or drainable. Extensor tendons are intact. No perceptible ex tensor tendon sheath fluid. CONCLUSION: Soft tissue edema without drainable fluid. Alex Hernandez MD on October 18, 2017 at 21:28 Board Certified Radiologist. This report was verified electronically.
[2017-10-18] MEDS ORDERED: CLINDAMYCIN 900 MG/DEX PREMIX 50 ML IV ONE (21:45)
[2017-10-18] MEDS ORDERED: CLIN300C5 PO (21:56)
[2017-10-19 05:45] VITALS: BP 102/59; PULSE 50; RESP 16; O2SAT 99
--- NOTE | 2017-10-19 06:43 | PD ---
Data Data Last Documented VS Vital Signs Date Time Temp Pulse Resp B/P (MAP) Pulse Ox O2 Delivery O2 Flow Rate FiO2 10/19/17 05:45 50 16 102/59 (73) 99 Room Air 10/18/17 19:22 97.7 Orders Orders Electrocardiogram (10/18/17 19:32) Complete Blood Count With Diff (10/18/17 19:32) Comprehensive Metabolic Panel (10/18/17 19:32) Iv Access Insert/Monitor (10/18/17 19:32) Ecg Monitoring (10/18/17 19:32) Oximetry (10/18/17 19:32) Naloxone Inj (Narcan Inj) (10/18/17 19:45) Ondansetron Inj (Zofran Inj) (10/18/17 19:45) Sodium Chloride 0.9% Flush (Ns Flush) (10/18/17 19:45) Sodium Chlor 0.9% 1000 Ml Inj (Ns 1000 M (10/18/17 19:32) Alcohol (Ethanol) (10/18/17 19:32) Salicylates (Aspirin) (10/18/17 19:32) Tylenol (Acetaminophen) (10/18/17 19:32) Us Arm Soft Tissue (10/18/17 ) Hand, Complete ([id number]) (10/18/17 ) Clindamycin 900 Mg Premix (Cleocin 900 M (10/18/17 21:45) Sodium Chlor 0.9% 1000 Ml Inj (Ns 1000 M (10/18/17 21:45) Ed Discharge Order (10/19/17 06:41) Labs Laboratory Tests Test 10/18/17 20:15 White Blood Count 7.7 TH/MM3 Red Blood Count 4.58 MIL/MM3 Hemoglobin 14.1 GM/DL Hematocrit 41.0 % Mean Corpuscular Volume 89.4 FL Mean Corpuscular Hemoglobin 30.8 PG Mean Corpuscular Hemoglobin Concent 34.5 % Red Cell Distribution Width 12.4 % Platelet Count 265 TH/MM3 Mean Platelet Volume 8.2 FL Neutrophils (%) (Auto) 57.3 % Lymphocytes (%) (Auto) 30.6 % Monocytes (%) (Auto) 11.0 % Eosinophils (%) (Auto) 0.5 % Basophils (%) (Auto) 0.6 % Neutrophils # (Auto) 4.4 TH/MM3 Lymphocytes # (Auto) 2.4 TH/MM3 Monocytes # (Auto) 0.8 TH/MM3 Eosinophils # (Auto) 0.0 TH/MM3 Basophils # (Auto) 0.0 TH/MM3 CBC Comment DIFF FINAL Differential Comment Blood Urea Nitrogen 25 MG/DL Creatinine 1.17 MG/DL Random Glucose 74 MG/DL Total Protein 7.4 GM/DL Albumin 3.6 GM/DL Calcium Level 8.9 MG/DL Alkaline Phosphatase 51 U/L Aspartate Amino Transf (AST/SGOT) 63 U/L Alanine Aminotransferase (ALT/SGPT) 48 U/L Total Bilirubin 0.8 MG/DL Sodium Level 138 MEQ/L Potassium Level 3.7 MEQ/L Chloride Level 102 MEQ/L Carbon Dioxide Level 30.0 MEQ/L Anion Gap 6 MEQ/L Estimat Glomerular Filtration Rate 72 ML/MIN Salicylates Level LESS THAN 1.7 MG/DL Acetaminophen Level LESS THAN 2.0 MCG/ML Ethyl Alcohol Level LESS THAN 3 MG/DL MDM Supervised Visit with SHEN: Yes Narrative Course I, Dr. Banuelos, have reviewed the advance practice practitioner's documentation and am in agreement, met with the patient face to face, made the diagnosis, and the medical decision making was done by me. See her note for further details. Is a 32-year-old male who is here after potential overdose. CBC and BMP are unremarkable. The patient has right hand swelling without warmth or erythema. Right hand ultrasound was performed and there is no drainable fluid collection. Right hand x-ray was performed and shows no bony abnormality with moderate soft tissue swelling. The patient has history of IVDU with track preston in his right arm. He was given a dose of clindamycin and will be given a prescriptive for clindamycin. Patient was allowed to sleep in the emergency department for several hours, and on reassessment at 6:40 AM he is easily arousable and states he wants to go home. He will be discharged home and given instructions to follow-up with [facility] as soon as possible. He denies suicidal or homicidal ideation. Diagnosis Primary Impression: Substance abuse Additional Impressions: Accidental overdose Qualified Codes: T50.901A - Poisoning by unspecified drugs, medicaments and biological substances, accidental (unintentional), initial encounter Cellulitis Qualified Codes: L03.113 - Cellulitis of right upper limb Referrals: Primary Care Physician [facility] Patient Instructions: General Instructions, Cellulitis (ED) Additional Instruction: Complete full course of antibiotics as prescribed Do not inject IV drugs into your body Follow-up with your primary doctor or at the [facility] Follow-up at [facility] Return to emergency department for any new or worsening symptoms Scripts Clindamycin (Clindamycin) 300 Mg Cap 300 MG PO TID for Infection for 10 Days, CAP 0 Refills Prov: Radha Serrano 10/18/17 Disposition: 01 DISCHARGE HOME Condition: Stable Dragan Banuelos MD Oct 19, 2017 06:43
--- NOTE | 2017-10-19 22:32 | EKG ---
Date Performed: 10/18/2017 Time Performed: 20:22:53 PTAGE: 32 years EKG: SINUS BRADYCARDIA WITH OCCASIONAL SUPRAVENTRICULAR PREMATURE COMPLEXES POSSIBLE RIGHT VENTR ICULAR CONDUCTION DELAY MODERATE ST DEPRESSION PROLONGED QT INTERVAL ABNORMAL ECG PREVIOUS TRACING : 09/21/2017 17.15 Compared to prior tracing no significant change DOCTOR: Jared Villanueva Interpretating Date/Time 10/19/2017 22:31:56
== END 2017-10-19 06:57 | disposition home or self-care (01) ==
LOC: NEPE 18:57
DX: F19.10 Other psychoactive substance abuse, uncomplicated (principal); T50.901A Poisoning by unspecified drugs, medicaments and biological substances, accidental (unintentional), initial encounter; L03.113 Cellulitis of right upper limb; R94.31 Abnormal electrocardiogram [ECG] [EKG]; Z72.0 Tobacco use; Z86.59 Personal history of other mental and behavioral disorders
CPT/HCPCS: 73130; 76882; 80053; 80307; 85025; 93005; 96361; 96374; 96375; 99285; J2310; J2405; J7030

== ENCOUNTER 2018-02-12 20:10 | Emergency (ER) | payer SELFPAY ==
[~2018-02-12 20:10] MED LIST: CLIN300C5 PO; NAPR500 PO
[2018-02-12 20:21] VITALS: BP 127/69; PULSE 90; RESP 18; TEMP 97.8; O2SAT 95
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
== END 2018-02-12 21:21 | disposition left against medical advice (07) ==
LOC: NEPD 20:10
DX: S43.101A Unspecified dislocation of right acromioclavicular joint, initial encounter (principal); F12.90 Cannabis use, unspecified, uncomplicated; W51.XXXA Accidental striking against or bumped into by another person, initial encounter; Y92.830 Public park as the place of occurrence of the external cause; Z72.0 Tobacco use; Z53.29 Procedure and treatment not carried out because of patient's decision for other reasons
CPT/HCPCS: 73030; 99283